=== PATIENT | male | born 1965 | race Caucasian/White ===

== ENCOUNTER 2018-02-03 19:09 | Emergency (ER) | payer OTHER ==
[~2018-02-03] VITALS: Ht 180.3 cm; Wt 93.0 kg
[2018-02-03] MEDS ORDERED: HYDROcodone-ACET 10/325MG TAB PO ONE (20:45)
[2018-02-03 23:09] VITALS: BP 103/63
== END 2018-02-04 00:22 | disposition home or self-care (01) ==
LOC: ER 19:17
DX: S52.125A Nondisplaced fracture of head of left radius, initial encounter for closed fracture (principal); W19.XXXA Unspecified fall, initial encounter; Y93.01 Activity, walking, marching and hiking; Y92.89 Other specified places as the place of occurrence of the external cause; Y99.8 Other external cause status
CPT/HCPCS: 73070; 73090